=== PATIENT | male | born 1960 | race Caucasian/White ===

== ENCOUNTER → 2016-05-08 | Outpatient (CLI) | payer MEDICAID ==
--- NOTE | 2016-05-08 17:29 | CT ---
CT lumbar spine without contrast dated May 08, 2016 Indication: 55-year-old man with post laminectomy syndrome. Lower back and leg pain. Lumbar spine fus ion 23 years ago. Technique: Helical imaging was obtained from the superior endplate of T12 through the mid sacrum util izing 4-mm thick collimation. Data was reconstructed in axial and sagittal planes in soft tissue and bone algorithm and in the coronal plane in bone algorithm. Dose reduction techniques were utilized. Comparison: None. Findings: The lumbar spine is anatomically aligned with a rudimentary disk space at the S1-S2 level. A right unilateral posterior fusion construct extending from L5 to S1 is well seated. No perihardware fracture or lucency. The L5 and S1 vertebral bodies are nicely osseous fused. The L5 and S1 facets a re osseous fused. Partial bilateral L5 laminectomy decompresses the thecal sac at this level. T12-L1: Minimal disk desiccation and facet hypertrophy. Central canal and neural foramina are widely patent. L1-L2: Minimal posterior disk bulge and facet hypertrophy results in mild central canal narrowing and mild bilateral neural foraminal narrowing. L2-L3: Mild diffuse broad-based disk bulge combined with facet hypertrophy and ligamentum flavum thic kening results in mild to moderate central canal narrowing, moderate bilateral ventrolateral recess n arrowing and minimal bilateral neural foraminal stenosis. Thecal sac measures roughly 9 mm AP. L3-L4: Diffuse broad-based disk bulge, facet hypertrophy and ligamentum flavum thickening results in moderate to severe central canal narrowing, severe bilateral ventrolateral recess narrowing and mild bilateral neural foraminal narrowing. The thecal sac measures 5 to 6 mm AP. L4-L5: Diffuse broad-based disk bulge combined with facet hypertrophy and ligamentum flavum thickenin g results in moderate to severe central canal narrowing, severe bilateral ventrolateral recess narrow ing and moderate bilateral neural foraminal narrowing. An excrescent bony spur emanating off the vent ral aspect of the right L4 facet (image 112 of series 4 and image 73 of the sagittal reconstruction) potentially affects the right L4 nerve root as it courses towards the L4-L5 neural foramina. The thec al sac measures 6 to 7 mm AP. L5-S1: Widely patent central canal decompressed by posterior laminectomies. Uncovertebral and facet h ypertrophy results in minimal bilateral neural foraminal stenosis. The abdominal aorta is normal in caliber with mild to moderate calcified atheroma. No retroperitoneal mass or nephrolithiasis. Impression: 1. Complete bony fusion of L5-S1 with well seated right unilateral posterior fusion construct at the L5-S1 level. Thecal sac is nicely decompressed by bilateral laminectomy at this level. 2. Moderate to severe central canal narrowing at L3-L4 and L4-L5 due to diffuse broad-based disk bulg e, facet hypertrophy and ligamentum flavum thickening. 3. Eccentric ventral spur off the right L4-L5 facet potentially affects the right L4 nerve root in th e ventrolateral recess.
== END ==
LOC: FIMAGING 10:06
PROVIDERS: ATTEND Registered Nurse
DX: M48.06 Spinal stenosis, lumbar region (principal); M51.86 Other intervertebral disc disorders, lumbar region; Z98.1 Arthrodesis status